=== PATIENT | female | born 1965 | race Caucasian/White ===

== ENCOUNTER → 2018-04-05 | Outpatient (CLI) | payer OTHER ==
--- NOTE | 2018-04-06 08:19 | REP ---
LEFT ANKLE COMPLETE: 04/05/2018. CLINICAL HISTORY: Trauma, ankle injury 2 days ago with swelling and tenderness laterally. FINDINGS: No prior study. There is soft tissue swelling about the anterolateral aspect of the ankle. I see no fracture or avulsion from the distal tibia or fibula. Mortise joint is symmetric and preserved, and there is no talar dome osteochondral defect. Subtalar joint is intact. Small spur at the insertion of the Achilles tendon noted. Talonavicular and calcaneocuboid joints normal. IMPRESSION: 1. Soft tissue swelling anterolateral aspect of the ankle without visible or displaced fracture, avulsion, disruption of the mortise joint, subtalar joint abnormality, or other acute finding. 2. Small Achilles insertional spur. Electronically Signed by Don Yi MD 04/06/2018 08:26 A
== END ==
LOC: M LRY 16:16
PROVIDERS: ATTEND Physician Assistant
DX: S99.911A Unspecified injury of right ankle, initial encounter (principal); M77.31 Calcaneal spur, right foot; W18.49XA Other slipping, tripping and stumbling without falling, initial encounter; Y92.9 Unspecified place or not applicable; Y93.9 Activity, unspecified; Y99.9 Unspecified external cause status

== ENCOUNTER → 2018-08-07 | Outpatient (CLI) | payer OTHER ==
--- NOTE | 2018-08-07 19:08 | REP ---
Chest x-ray: Two views. History: Wheezing and cough . Comparison study: No comparison study . Findings: The lungs are well inflated and free of infiltrate. The pleural angles are sharp. The heart size is normal. Pulmonary vasculature is not increased. No significant bony abnormality is seen. Impression: Negative chest x-ray. Electronically Signed by Jarred Leung MD 08/07/2018 06:59 P
== END ==
LOC: M LRY 18:35
PROVIDERS: ATTEND Physician Assistant
DX: R06.2 Wheezing (principal); R05 Cough

== ENCOUNTER → 2020-02-03 | Outpatient (CLI) | payer OTHER ==
[~2020-02-03] MED LIST: AMOX875T2 PO; ATOR1TAB21 PO; BUSP1TAB PO; FLUO20CA20 PO; FOLI1TAB11 PO; LISI-542 PO; PANT20TA6 PO; SUCR1ORA PO; SULF500TA PO
== END ==
LOC: M LABSMTC 12:27
PROVIDERS: ATTEND Anesthesiology
DX: Z01.812 Encounter for preprocedural laboratory examination (principal); Z20.828 Contact with and (suspected) exposure to other viral communicable diseases

== ENCOUNTER 2020-02-08 07:49 | Day surgery (SDC) | payer BC ==
[~2020-02-08] VITALS: Ht 162.6 cm; Wt 90.3 kg
[~2020-02-08 07:49] MED LIST changes: +NS 1,000 ML IV ONE
[2020-02-08] MEDS ORDERED: propofoL 500 MG/50 ML VIAL As Ordered ONE (08:57)
[2020-02-08] MEDS ORDERED: fentaNYL 100 MCG/2 ML INJECTION (J3010) As Ordered ONE (08:57)
[2020-02-08] MEDS ORDERED: LIDOCAINE 2% 100MG/5ML SDV (FOR ANES.) As Ordered ONE (08:57)
[2020-02-08 10:00] VITALS: BP 119/82
--- NOTE | 2020-02-08 10:01 | ROOR ---
Patient Name: Yani Maza Procedure Date: 02/08/2020 8:51 AM Date of : 1965 Age: 54 Room: [facility] Gender: Female Note Status: Finalized Procedure: Upper GI endoscopy Indications: Dysphagia Providers: Isra Haro MD Referring MD: Karen Dawkins MD Requesting Provider: Medicines: Monitored Anesthesia Care Complications: No immediate complications. Procedure: Pre-Anesthesia Assessment: - Prior to the procedure, a History and Physical was performed, and patient medications and allergies were reviewed. The patient is competent. The risks and benefits of the procedure and the sedation options and risks were discussed with the patient. All questions were answered and informed consent was obtained. Patient identification and proposed procedure were verified by the physician, the nurse and the anesthesiologist in the procedure room. Mental Status Examination: alert and oriented. Airway Examination: normal oropharyngeal airway and neck mobility. Respiratory Examination: clear to auscultation. CV Examination: normal. Prophylactic Antibiotics: The patient does not require prophylactic antibiotics. Prior Anticoagulants: The patient has taken no previous anticoagulant or antiplatelet agents. ASA Grade Assessment: II - A patient with mild systemic disease. After reviewing the risks and benefits, the patient was deemed in satisfactory condition to undergo the procedure. The anesthesia plan was to use monitored anesthesia care (MAC). Immediately prior to administration of medications, the patient was re-assessed for adequacy to receive sedatives. The heart rate, respiratory rate, oxygen saturations, blood pressure, adequacy of pulmonary ventilation, and response to care were monitored throughout the procedure. The physical status of the patient was re-assessed after the procedure. The Endoscope was introduced through the mouth, and advanced to the second part of duodenum. The upper GI endoscopy was accomplished without difficulty. The patient tolerated the procedure well. Findings: The examined esophagus was normal. Biopsies were obtained from the proximal and distal esophagus with cold forceps for histology of suspected eosinophilic esophagitis. Verification of patient identification for the specimen was done by the physician and nurse using the patient's name, date and medical record number. Scattered moderate inflammation characterized by erythema and granularity was found in the gastric antrum. Biopsies were taken with a cold forceps for Helicobacter pylori testing. The duodenal bulb and second portion of the duodenum were normal. Impression: - Normal esophagus. Biopsied. - Gastritis. Biopsied. - Normal duodenal bulb and second portion of the duodenum. Recommendation: - Patient has a contact number available for emergencies. The signs and symptoms of potential delayed complications were discussed with the patient. Return to normal activities tomorrow. Written discharge instructions were provided to the patient. - High fiber diet. - Continue present medications. - Await pathology results. - Return to GI clinic in [facility] (address [address], [address], [place] [address]) in 4 -- 6 weeks. Please call GI clinic @ [phone] for apppointment date and time. - Return to primary care physician. Procedure Code(s): --- Professional --- 48876, Esophagogastroduodenoscopy, flexible, transoral; with biopsy, single or multiple Diagnosis Code(s): --- Professional --- K29.70, Gastritis, unspecified, without bleeding R13.10, Dysphagia, unspecified CPT copyright 2019 [employer]. All rights reserved. The codes documented in this report are preliminary and upon occupational therapist per diem review may be revised to meet current compliance requirements. Isra Haro MD Isra Haro MD 02/08/2020 10:00:27 AM Electronically signed by Isra Haro MD Number of Addenda: 0 Note Initiated On: 02/08/2020 8:51 AM Estimated Blood Loss: Estimated blood loss was minimal.
--- NOTE | 2020-02-08 10:33 | ROOR ---
Patient Name: Yani Maza Procedure Date: 02/08/2020 8:56 AM Date of : 1965 Age: 54 Room: [facility] Gender: Female Note Status: Finalized Procedure: Colonoscopy Indications: Follow-up of Crohn's disease Providers: Isra Haro MD Referring MD: Karen Dawkins MD Requesting Provider: Medicines: Monitored Anesthesia Care Complications: No immediate complications. Procedure: Pre-Anesthesia Assessment: - Prior to the procedure, a History and Physical was performed, and patient medications and allergies were reviewed. The patient is competent. The risks and benefits of the procedure and the sedation options and risks were discussed with the patient. All questions were answered and informed consent was obtained. Patient identification and proposed procedure were verified by the physician, the nurse and the anesthesiologist in the procedure room. Mental Status Examination: alert and oriented. Airway Examination: normal oropharyngeal airway and neck mobility. Respiratory Examination: clear to auscultation. CV Examination: normal. Prophylactic Antibiotics: The patient does not require prophylactic antibiotics. Prior Anticoagulants: The patient has taken no previous anticoagulant or antiplatelet agents. ASA Grade Assessment: II - A patient with mild systemic disease. After reviewing the risks and benefits, the patient was deemed in satisfactory condition to undergo the procedure. The anesthesia plan was to use monitored anesthesia care (MAC). Immediately prior to administration of medications, the patient was re-assessed for adequacy to receive sedatives. The heart rate, respiratory rate, oxygen saturations, blood pressure, adequacy of pulmonary ventilation, and response to care were monitored throughout the procedure. The physical status of the patient was re-assessed after the procedure. The Colonoscope was introduced through the anus and advanced to the terminal ileum, with identification of the appendiceal orifice and IC valve. The colonoscopy was performed without difficulty. The patient tolerated the procedure well. The quality of the bowel preparation was good. The terminal ileum, ileocecal valve, appendiceal orifice, and rectum were photographed. Scope insertion time was 3 minutes. Scope withdrawal time was 9 minutes. The total duration of the procedure was 14 minutes. Findings: The perianal and digital rectal examinations were normal. The terminal ileum appeared normal. Two sessile polyps were found in the transverse colon and ascending colon. The polyps were 6 to 8 mm in size. These polyps were removed with a cold snare. Resection and retrieval were complete. Verification of patient identification for the specimen was done by the physician and nurse using the patient's name, date and medical record number. Estimated blood loss was minimal. Non-bleeding external and internal hemorrhoids were found during retroflexion. The hemorrhoids were medium-sized. There is no endoscopic evidence of inflammation or colitis in the entire colon. Impression: - The examined portion of the ileum was normal. - Two 6 to 8 mm polyps in the transverse colon and in the ascending colon, removed with a cold snare. Resected and retrieved. - Non-bleeding external and internal hemorrhoids. Recommendation: - Patient has a contact number available for emergencies. The signs and symptoms of potential delayed complications were discussed with the patient. Return to normal activities tomorrow. Written discharge instructions were provided to the patient. - High fiber diet. - Continue present medications. - Await pathology results. - Repeat colonoscopy in 5 years for surveillance based on pathology results. - Return to GI clinic in [facility] (address [address], [address], [place] [address]) in 4 -- 6 weeks. Please call GI clinic @ [phone] for apppointment date and time. - Return to primary care physician. Procedure Code(s): --- Professional --- 18930, Colonoscopy, flexible; with removal of tumor(s), polyp(s), or other lesion(s) by snare technique Diagnosis Code(s): --- Professional --- K64.8, Other hemorrhoids K63.5, Polyp of colon K50.90, Crohn's disease, unspecified, without complications CPT copyright 2019 [employer]. All rights reserved. The codes documented in this report are preliminary and upon electric utility lineworker review may be revised to meet current compliance requirements. Isra Haro MD Isra Haro MD 02/08/2020 10:33:44 AM Electronically signed by Isra Haro MD Number of Addenda: 0 Note Initiated On: 02/08/2020 8:56 AM Estimated Blood Loss: Estimated blood loss was minimal.
== END 2020-02-08 10:12 | disposition home or self-care (01) ==
LOC: M OPP 07:49
PROVIDERS: ATTEND Internal Medicine Gastroenterology
DX: K63.5 Polyp of colon (principal); K64.8 Other hemorrhoids; K50.90 Crohn's disease, unspecified, without complications; K29.70 Gastritis, unspecified, without bleeding; R13.10 Dysphagia, unspecified; K21.9 Gastro-esophageal reflux disease without esophagitis; Z79.899 Other long term (current) drug therapy; Z88.1 Allergy status to other antibiotic agents; Z86.718 Personal history of other venous thrombosis and embolism
CPT/HCPCS: 43239; 45385; 88305; J3010